=== PATIENT | female | born 1950 | race Caucasian/White ===

== ENCOUNTER → 2020-12-30 | Outpatient (CLI) | payer MEDICARE, OTHER | LOC: KOH-I 08:57 | DX: J01.81 Other acute recurrent sinusitis (principal); J32.3 Chronic sphenoidal sinusitis | CPT/HCPCS: 70486 ==

== ENCOUNTER → 2022-06-27 | Outpatient (CLI) | payer MEDICARE, OTHER | LOC: HEART 5 07:30 | DX: I20.8 Other forms of angina pectoris (principal); R94.31 Abnormal electrocardiogram [ECG] [EKG]; R06.02 Shortness of breath; R60.9 Edema, unspecified | CPT/HCPCS: 78452; 93306; 93971; A9502; J2785 ==